=== PATIENT | male | born 1970 | race Hispanic/Latino ===

== ENCOUNTER 2017-09-26 09:02 | Emergency (ER) | payer OTHER ==
[~2017-09-26] VITALS: Ht 172.7 cm; Wt 109.3 kg
[2017-09-26] MEDS ORDERED: KETOROLAC TROMETHAMINE 60 MG/2 ML VIAL IM ONE (09:15)
[2017-09-26] MEDS ORDERED: DIAZEPAM 2 MG TAB PO ONE (09:15)
[2017-09-26] MEDS ORDERED: DIAZEPAM 5 MG TAB PO ONE (10:00)
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
[2017-09-26] MEDS ORDERED: ULTRAM50 MG PO (12:17)
[2017-09-26] MEDS ORDERED: ROBAXIN-750750 MG PO (12:18)
[2017-09-26 12:59] VITALS: BP 113/97
== END 2017-09-26 12:40 | disposition home or self-care (01) ==
LOC: ER 09:02
DX: R51 Headache (principal); M54.2 Cervicalgia; M54.5 Low back pain; V43.52XA Car driver injured in collision with other type car in traffic accident, initial encounter; Y92.488 Other paved roadways as the place of occurrence of the external cause
CPT/HCPCS: 70450; 72125; 72131; 99284; J1885